=== PATIENT | female | born 1965 | race Caucasian/White ===

== ENCOUNTER 2024-05-20 05:28 | Observation (INO) ==
[~2024-05-20 05:28] MED LIST: Naloxone 0.4 mg VIAL 0.4 mg/ml 1 ml VIAL IV PRN
[2024-05-20] MEDS: Buffered Lidocaine 1% SYRIN 1 ml INTRADERM ONE (06:03)
[2024-05-20] MEDS ORDERED: ceFAZolin 2 GM PREMIX 2 GM/50 ML BAG ONE (06:05)
[2024-05-20] MEDS ORDERED: Tranexamic Acid 1 GM/100ML BAG 2,000 MG/200 ML BAG IV ONE (06:05)
[2024-05-20] MEDS: Scopolamine 1 mg/72hr PATCH TRANSDERM ONE (06:24)
[2024-05-20] MEDS: Lactated Ringers 1000 ml BAG 1,000 ML IV SCH ×2 (06:24→13:57)
[2024-05-20 06:37] LABS: Rapid COVID-19 Molecular Undetected (Undetected)
[2024-05-20] MEDS ORDERED: fentaNYL 100 mcg/2 ml 50 MCG/ML VIAL ONE ×3 (07:04→10:56)
[2024-05-20] MEDS ORDERED: Lidocaine 2% PF 5 ML VIAL ONE (07:04)
[2024-05-20] MEDS ORDERED: Ondansetron 4 mg VIAL 2 MG/ML 2 ml VIAL ONE (07:04)
[2024-05-20] MEDS ORDERED: Propofol 10 MG/ML 20 ML BTL ONE (07:04)
[2024-05-20] MEDS ORDERED: Rocuronium 50 mg VIAL 10 mg/ml 5 ml VIAL (50 mg) ONE ×2 (07:04→08:19)
[2024-05-20] MEDS ORDERED: Dexamethasone IV 4 MG/ML VIAL 1 ml VIAL ONE (07:04)
[2024-05-20] MEDS ORDERED: Midazolam 2 mg/2 ml VIAL 1 mg/ml 2 ml VIAL (2 mg) ONE (07:15)
[2024-05-20] MEDS ORDERED: ROPIVACAINE 5 MG/ML 30 ML BTL (0.5%) ONE (07:17)
[2024-05-20] MEDS ORDERED: Phenylephrine IV 10 MG/ML 1 ml VIAL ONE (08:15)
[2024-05-20] MEDS ORDERED: Lidocaine 1% w EPI 1:100,000 MDV 50 ML VIAL ONE (08:35)
[2024-05-20] MEDS ORDERED: Glycopyrrolate IV 0.2 MG/ML 1 ML VIAL ONE (10:04)
[2024-05-20] MEDS ORDERED: Magnesium Hydroxide LIQ 30 ML UDC PO PRN (11:22)
[2024-05-20] MEDS ORDERED: Lactulose 30 ml UDC PO PRN (11:22)
[2024-05-20] MEDS ORDERED: Ondansetron ODT 4 mg TAB 4 MG TAB PO PRN (11:22)
[2024-05-20] MEDS ORDERED: Morphine 2 MG/ML SYRINGE IV PRN (11:22)
[2024-05-20] MEDS ORDERED: Ondansetron 4 mg VIAL 2 MG/ML 2 ml VIAL IV PRN (11:22)
[2024-05-20] MEDS ORDERED: HYDROmorphone 1 MG/1 ML SYRINGE ONE (11:51)
[2024-05-20] MEDS: HYDROmorphone 1 MG/1 ML SYRINGE IV SLOW PU PRN (11:52)
[2024-05-20] MEDS: ceFAZolin 1 GM ADVAN 1 GM in NS 0.9% 50 ML 50 ML IVPB SCH (16:00)
[2024-05-20 18:11] VITALS: BP 117/74
[2024-05-20] MEDS ORDERED: Magnesium Hydroxide LIQ 30 ML UDC PO SCH (21:00)
[2024-05-21] MEDS ORDERED: Vitamin THERAPEUTIC TAB PO SCH (09:00)
== END 2024-05-20 18:30 | disposition home or self-care (01) ==
LOC: SSU 05:28 → OR 05:28
PROVIDERS: ADMIT Orthopaedic Surgery Sports Medicine; ATTEND Orthopaedic Surgery Sports Medicine